=== PATIENT | male | born 1950 | race Caucasian/White ===

== ENCOUNTER 2023-07-29 21:22 | Emergency (ER) | payer OTHER, MEDICAID ==
[~2023-07-29] VITALS: Ht 177.8 cm; Wt 95.3 kg
[2023-07-29 21:33] VITALS: BP 170/90; PULSE 77; RESP 18; TEMP 98.1; O2SAT 98
[2023-07-29] MEDS: LORazepam 1 MG TAB PO ONE (22:49)
[2023-07-29] MEDS: KETOROLAC 30 MG/ML VIAL IM ONE (22:52)
[2023-07-30] MEDS ORDERED: ACET-10509 PO (00:34)
[2023-07-30] MEDS ORDERED: ATI.5 PO (00:34)
[2023-07-30 00:47] VITALS: BP 137/88; PULSE 71; RESP 17; TEMP 98.2; O2SAT 98
== END 2023-07-30 00:47 | disposition home or self-care (01) ==
LOC: MED 21:22
DX: J02.9 Acute pharyngitis, unspecified (principal); F41.9 Anxiety disorder, unspecified; R51.9 Headache, unspecified; I10 Essential (primary) hypertension; E78.5 Hyperlipidemia, unspecified; I25.2 Old myocardial infarction; Z79.899 Other long term (current) drug therapy; Z95.818 Presence of other cardiac implants and grafts
CPT/HCPCS: 71045; 93005; 96372; 99283; J1885